=== PATIENT | male | born 1960 | race Caucasian/White ===

== ENCOUNTER 2022-06-27 10:17 | Emergency (ER) | payer MEDICAID ==
[~2022-06-27] VITALS: Ht 172.7 cm; Wt 75.0 kg
[2022-06-27 10:22] VITALS: BP 128/64
[2022-06-27 12:22] LABS: INR 1.7; PARTIAL THROMBOPLASTIN TIME 35.9 sec (23.4-31.0); PROTHROMBIN TIME 17.3 sec (9.6-11.0)
[2022-06-27] MEDS ORDERED: WARF4TAB71 MT (12:41)
[2022-06-27] MEDS ORDERED: WARF3TAB58 MT (12:41)
== END 2022-06-27 13:16 | disposition home or self-care (01) ==
LOC: ER 10:17
DX: Z76.0 Encounter for issue of repeat prescription (principal); I25.2 Old myocardial infarction; Z86.73 Personal history of transient ischemic attack (TIA), and cerebral infarction without residual deficits; Z98.61 Coronary angioplasty status; Z79.01 Long term (current) use of anticoagulants
CPT/HCPCS: 36415; 99283

== ENCOUNTER 2022-07-07 10:48 | Emergency (ER) | payer MEDICAID ==
[~2022-07-07] VITALS: Ht 170.2 cm; Wt 73.0 kg
[~2022-07-07 10:48] MED LIST: WARF3TAB58 MT; WARF4TAB71 MT
[2022-07-07] MEDS ORDERED: LOSA25TA26 MT (20:20)
[2022-07-07] MEDS ORDERED: CARV3.1242 MT (20:20)
[2022-07-07] MEDS ORDERED: SIMV-43 MT (20:20)
[2022-07-07 21:51] LABS: INR 2.3; PROTHROMBIN TIME 23.5 sec (9.6-11.0)
[2022-07-07 22:14] VITALS: BP 122/56
== END 2022-07-07 19:50 | disposition home or self-care (01) ==
LOC: ER 10:48
DX: I10 Essential (primary) hypertension (principal); I25.2 Old myocardial infarction; E78.00 Pure hypercholesterolemia, unspecified; Z95.1 Presence of aortocoronary bypass graft; Z79.01 Long term (current) use of anticoagulants; Z86.73 Personal history of transient ischemic attack (TIA), and cerebral infarction without residual deficits
CPT/HCPCS: 36415; 99283